=== PATIENT | male | born 1955 | race Caucasian/White ===

== ENCOUNTER 2016-05-30 10:41 | Emergency (ER) | payer OTHER | END 2016-05-30 14:09 | disposition home or self-care (01) | LOC: ER 10:41 | DX: S81.802A Unspecified open wound, left lower leg, initial encounter (principal); S93.402A Sprain of unspecified ligament of left ankle, initial encounter; L03.116 Cellulitis of left lower limb; W18.09XA Striking against other object with subsequent fall, initial encounter; Y92.009 Unspecified place in unspecified non-institutional (private) residence as the place of occurrence of the external cause; E11.9 Type 2 diabetes mellitus without complications; I10 Essential (primary) hypertension; I51.9 Heart disease, unspecified; F17.210 Nicotine dependence, cigarettes, uncomplicated; Z79.84 Long term (current) use of oral hypoglycemic drugs; Z79.899 Other long term (current) drug therapy | CPT/HCPCS: 29515; 73610; 99070; 99283-25 ==

== ENCOUNTER 2016-06-18 06:40 | Emergency (ER) | payer OTHER ==
[2016-06-18 07:11] LABS: BASO # 0.1 10_X3_uL (0.0-0.1); BASO % 0.3 % (0.2-1.2); HEMATOCRIT 41.9 % (40-51); HEMOGLOBIN 14.9 g/dL (13.7-17.5); LYMPH # 1.4 10_X3_uL (1.3-3.6); LYMPH % 4.9 % (21.8-53.1); MEAN CORPUSCULAR HGB CONC 35.6 g/dL (32.0-36.0); MEAN CORPUSCULAR VOLUME 84.5 fL (79-92); MEAN PLATELET VOLUME 9.4 fl (7.5-11.5); MONO # 2.2 10_X3_uL (0.3-0.8); MONO % 7.7 % (5.3-12.2); PLATELET COUNT 388 x10_3/uL (163-337); RED BLOOD COUNT 4.96 x10_6/uL (4.6-6.1); RED CELL DISTRIBUTION WIDTH 12.8 % (11.6-14.4)
[2016-06-18 07:16] LABS: WHITE BLOOD COUNT 28.8 x10_3/uL (4.2-9.1)
[2016-06-18 07:25] LABS: ALBUMIN 3.5 gm/dL (3.4-5.0); ALKALINE PHOSPHATASE 88 U/L (50-136); ALT/SGPT 19 U/L (7.53-40.17); AMYLASE 142 U/L (15.62-74.58); AST/SGOT 15 U/L (6.66-35.34); BILIRUBIN,TOTAL 0.58 mg/dL (0.0-1.0); BLOOD UREA NITROGEN 14 mg/dL (7-18); CALCIUM 8.8 mg/dL (8.7-10.7); CARBON DIOXIDE 20 mmol/L (21-32); CREATININE 0.9 mg/dL (0.6-1.3); GLUCOSE,RANDOM 175 mg/dL (70-99); LIPASE 211 U/L (6.75-60.75); SODIUM 126 mmol/L (136-145); TOTAL PROTEIN 7.5 gm/dL (6.4-8.2)
[2016-06-18 07:49] LABS: URINE BILIRUBIN NEGATIVE (NEGATIVE); URINE BLOOD TRACE (NEGATIVE); URINE GLUCOSE (UA) NORMAL (NORMAL); URINE KETONE TRACE (NEGATIVE); URINE LEUKOCYTE ESTERASE TRACE (NEGATIVE); URINE NITRATE NEGATIVE (NEGATIVE); URINE PROTEIN 2+ (NEGATIVE)
[2016-06-18 08:02] LABS: URINE AMORPHOUS SEDIMENT 1+; URINE BACTERIA FEW (NONE SEEN); URINE RBC 0-5 /[HPF] (0-2); URINE SQUAMOUS EPITHELIAL CELL 0-10 /[HPF] (NONE SEEN); URINE WBC 0-5 /[HPF] (0-3)
== END 2016-06-18 11:20 | disposition short-term general hospital (02) ==
LOC: ER 06:40
PROVIDERS: Emergency Medicine
DX: R10.30 Lower abdominal pain, unspecified (principal); M54.9 Dorsalgia, unspecified; E11.9 Type 2 diabetes mellitus without complications; I10 Essential (primary) hypertension; F17.210 Nicotine dependence, cigarettes, uncomplicated; Z79.899 Other long term (current) drug therapy; E65 Localized adiposity
CPT/HCPCS: 36415; 80053; 81001; 82150; 83605; 83690; 85025; 87040; 96365; 96366; 96375; 99070; 99285-25